=== PATIENT | female | born 1980 | race Two or more races ===

== ENCOUNTER 2024-04-18 00:35 | Inpatient (IN) | payer BC ==
[~2024-04-18] VITALS: Ht 167.6 cm; Wt 91.8 kg
[2024-04-18 01:09] VITALS: BP 151/94; PULSE 71; RESP 18; TEMP 98.2; O2SAT 97
--- NOTE | 2024-04-18 02:36 | DVHHPRES ---
History of Present Illness Resident Creating Document: FRACISCO JAMES RESIDENT History of Present Illness This is a 43 years old female with no significant past medical history presented to the [facility] earlier today with complaints of chest pressure , elevated blood pressure and numbness on the left side of the face. Code stroke was called there and patient was evaluated for possibility of acute stroke. On neurological examination they didn't find any sign of acute stroke. On CBC hemoglobin was 13.2 and hematocrit 40.3 and BNP demonstrated sodium 141, potassium 3.6, serum creatinine 0.88 and BUN 12. EKG and troponins were unremarkable. Coagulation studies revealed PT 10, PTT 32.[address] angio chest with contrast revealed normal study and no filling defect in the pulmonary arteries. CT Head without contrast revealed normal study and CTA head and neck revealed no acute finding in the arteries of the head and neck. The patient is transferred to the [facility] for the insurance issue. The patient is admitted for further evaluation to exclude the possibility of acute stroke. Past Medical History None Past Surgical History None Family History None Past Social History Lives with Family Nonsmoker, nonalcoholic and never tried any drugs. Review of Systems Constitutional: No: Fever, Chills, Sweats, Weakness, Malaise, Other Eyes: No: Pain, Vision change, Conjunctivae inflammation, Eyelid inflammation, Other, Redness ENT: No: Ear pain, Ear discharge, Nose pain, Nose discharge, Nose congestion, Mouth pain, Mouth swelling, Throat pain, Throat swelling, Other Respiratory: No: Cough, Dry, Shortness of breath, SOB with excertion, Wheezing, Hemoptysis, Pleuritic Pain, Sputum, Wheezing, Other Cardiovascular: No: Chest Pain, Palpitations, Orthopnea, Paroxysmal Noc. Dyspnea, Edema, Lt Headedness, Other Gastrointestinal: No: Nausea, Vomiting, Abdominal Pain, Diarrhea, Constipation, Melena, Hematochezia, Other Genitourinary: No Dysuria, No Frequency, No Incontinence, No Hematuria, No Retention, No Other Musculoskeletal: No: other, neck pain, shoulder pain, arm pain, back pain, hand pain, leg pain, foot pain Skin: No: Rash, Lesions, Jaundice, Bruising, Other Neurological: No: Weakness, Numbness, Incoordination, Change in speech, Confusion, Seizures, Other Allergies: Coded Allergies: NO KNOWN ALLERGIES (Unverified , 08/26/13) Exam Vital Signs Vital Signs Date Time Temp Pulse Resp B/P (MAP) Pulse Ox O2 Delivery O2 Flow Rate FiO2 04/18/24 01:09 98.2 71 18 151/94 (113) 97 98.2 04/18/24 01:09 Room Air* 0 21 Exam Physical examination: General Appearance: Alert, Oriented X3, Cooperative, No acute distress HEENT: Atraumatic, PERRLA, EOMI, Mucous membrane moist/pink Respiratory: Clear to auscultation, Normal air movement Cardiovascular: Regular rate, Normal S1, Normal S2, No murmurs, no chest wall tenderness Abdominal: Normal bowel sounds, Soft, No tenderness, No hepatospenomegaly, No masses Extremities: No clubbing, No cyanosis, No edema, Normal pulses, No tenderness/swelling Skin: No rashes, No breakdown, No significant lesion Neuro: Normal gait, Normal speech, Strength at 5/5 X4 ext, Normal tone, Sensation intact, Cranial nerves 3-12 NL, Reflexes 2+ Psych/Mental Status: Mental status NL, Mood NL Assessment/Plan Assessment/Plan Assessment and plan: # Transient ischemic attack, rule out acute stroke - Patient was evaluated in [facility] for acute stroke - CT head without contrast revealed normal study - CTA head and neck demonstrated no acute finding in the arteries of the head and neck - CT angio chest with contrast showed normal study and no filling defects in the pulmonary arteries - EKG and troponins were unremarkable - CBC, CMP and coagulation studies were normal - Ordered MRI of the head without contrast, TSH, B12, echo, lipid profile, hemoglobin A1c - Aspirin 81 mg p.o. daily and atorvastatin 40 mg at HS # Essential hypertension - Permissive hypertension is recommended for next 24-48 hours - Monitoring of the blood pressure closely # Prediabetic, hemoglobin A1c 5.8 - counseled patient regarding low carb diet, lifestyle modification and physical exercise # Hyperlipidemia - Atorvastatin 40 mg at HS # Hypokalemia - Replenished # PUD prophylaxis - Pepcid 20 mg po daily # DVT prophylaxis - Not recommended as patient is mobile. Goal of care discussed with the patient for more than 17 minutes full code Plan discussed with Dr. Escalante Plan discussed with: Patient, Other My Orders Orders - FRACISCO JAMES RESIDENT Procedure Category Date Status Time Brain Head Wo Contrast MRI 12/27/24 Transmitted 02:30 Thyroid Stimulating LAB 04/18/24 Transmitted Hormone 02:30 Vitamin B12 LAB 04/18/24 Transmitted 02:30 Hemoglobin A1c LAB 04/18/24 Transmitted 02:30 Complete Blood Count LAB 04/18/24 Transmitted 02:30 Basic Metabolic Panel LAB 04/18/24 Transmitted 02:30 Echo 2d Mode Cardiac US 04/18/24 Transmitted DOP 02:30 Electrocardigram EKG 04/18/24 Transmitted 02:30 Aspirin Enteric PHA 04/18/24 Transmitted Coated Tablet 10:00 Atorvastatin (Lipitor) PHA 04/18/24 Transmitted 22:00 Date of Service: Apr 18, 2024 Billing Provider: ALLIE ESCALANTE MD Common Visit Codes: [id number] INP/OBS CARE (HIGH) FRACISCO JAMES RESIDENT Apr 18, 2024 02:36 ALLIE ESCALANTE MD Apr 18, 2024 09:02
[2024-04-18 03:02] VITALS: PULSE 74
[2024-04-18 04:09] LABS: Anion Gap 7 (5-15); Carbon Dioxide 28 mmol/L (20-31); Chloride 105 mmol/L (98-107); Sodium 140 mmol/L (136-145)
[2024-04-18 04:10] LABS: Calcium 9.5 mg/dL (8.7-10.4)
[2024-04-18 04:15] LABS: Triglycerides 132 mg/dL (< 150)
[2024-04-18 04:16] LABS: Glucose 103 mg/dL (74-106)
[2024-04-18 04:19] LABS: Basophils # (auto) 0 10 ^3/uL (0-0.2); Basophils % (auto) 0.5 % (0.0-2.0); Eosinophils # (auto) 0.1 10 ^3/uL (0-0.8); Eosinophils % (auto) 1.2 % (0.0-7.0); Hematocrit 37.6 % (36.0-46.0); Hemoglobin 12.7 g/dL (12.2-16.2); Lymphocytes # (auto) 2.7 10 ^3/uL (0.4-5.4); Lymphocytes % (auto) 43.9 % (10.0-50.0); Mean Corpuscular Hemoglobin 31.4 pg (28.0-32.0); Mean Corpuscular Hgb Conc. 33.9 g/dL (32.0-36.0); Mean Corpuscular Volume 92.7 fL (80.0-100.0); Monocytes # (auto) 0.4 10 ^3/uL (0-1.3); Monocytes % (auto) 6.4 % (0.0-12.0); Neutrophils # (auto) 2.9 10 ^3/uL (1.6-8.6); Platelet Count (auto) 204 10^3/uL (140-450); Red Blood Cells 4.06 10^6/uL (4.0-5.20); Red Cell Distribution Width 13.3 % (11.8-14.3); White Blood Cell 6.1 10^3/uL (4.4-10.8)
[2024-04-18 04:34] LABS: Blood Urea Nitrogen 8 mg/dL (9-23); Cholesterol 227 mg/dL (< 200); HDL Cholesterol 77 mg/dL (40-59); LDL Cholesterol 139 mg/dL (< 100); Potassium 3.4 mmol/L (3.5-5.1)
[2024-04-18 05:00] VITALS: BP 120/79; PULSE 65; RESP 16; TEMP 97.7; O2SAT 97
[2024-04-18 08:30] VITALS: PULSE 67
[2024-04-18 09:00] VITALS: BP 96/62; PULSE 69; RESP 16; TEMP 98; O2SAT 96
[2024-04-18] MEDS: ASPirin-EC 81 mg tab PO SCH (09:40)
[2024-04-18] MEDS: FAMOTIDINE 20 MG TAB PO SCH (09:40)
[2024-04-18] MEDS: CLOPIDOGREL BISULFATE 75 MG TAB PO SCH (09:41)
--- NOTE | 2024-04-18 10:21 | DVH ---
MRI BRAIN WITHOUT CONTRAST CLINICAL HISTORY: Transient ischemic attack TECHNIQUE: Multiplanar, multisequence MR images of the brain without intravenous contrast. Comparison: None FINDINGS: There is no restricted diffusion. The mora and white matter signal is appropriate. There is no eviden ce of hemorrhage, mass, mass effect or midline shift. There is no hydrocephalus or extra-axial fluid collection. The visualized intracranial vasculature demonstrates appropriate flow-voids. The sagittal midline structures appear unremarkable. The craniocervical junction is within normal limits. The tatum varium demonstrates normal marrow signal. The paranasal sinuses and mastoid air cells are clear. IMPRESSION: 1. Unremarkable noncontrast MRI brain. HS:Y
--- NOTE | 2024-04-18 12:46 | DVHPN2 ---
Reviewed: Care Plan, H&P, Labs, Medications, Previous Orders, Radiology Changes from previous H/P or p: No Changes Eyes: No Pain, No Vision change, No Conjunctivae inflammation, No Eyelid inflammation, No Other, No Redness ENT: No Ear pain, No Ear discharge, No Nose pain, No Nose discharge, No Nose congestion, No Mouth pain, No Mouth swelling, No Throat pain, No Throat swelling, No Other Cardiovascular: No Chest Pain, No Palpitations, No Orthopnea, No Paroxysmal Noc. Dyspnea, No Edema, No Lt Headedness, No Other Respiratory: No Cough, No Dry, No Shortness of breath, No SOB with excertion, No Wheezing, No Hemoptysis, No Pleuritic Pain, No Sputum, No Other Gastrointestinal: No Nausea, No Vomiting, No Abdominal Pain, No Diarrhea, No Constipation, No Melena, No Hematochezia, No Other Genitourinary: No Dysuria, No Frequency, No Incontinence, No Hematuria, No Retention, No Other Musculoskeletal: No other, No neck pain, No shoulder pain, No arm pain, No back pain, No hand pain, No leg pain, No foot pain Skin: No Rash, No Lesions, No Jaundice, No Bruising, No Other Objective Vitals Vital Signs Date Time Temp Pulse Resp B/P (MAP) Pulse Ox O2 Delivery O2 Flow Rate FiO2 04/18/24 09:00 98.0 69 16 96/62 (73) 96 98.0 04/18/24 01:09 Room Air* 0 21 Intake/Output Intake and Output 04/18/24 07:00 Intake Total 0 ml Balance 0 ml Intake Oral 0 ml Medications Current Medications Medications Dose Ordered Sig/Hipolito Route Start Time Stop Time Status Last Admin Dose Admin Aspirin 81 mg DAILY PO 04/18/24 10:00 04/18/24 09:40 81 MG Atorvastatin Calcium 40 mg HS PO 04/18/24 22:00 Famotidine 20 mg DAILY PO 04/18/24 10:00 04/18/24 09:40 20 MG Clopidogrel Bisulfate 75 mg DAILY PO 04/18/24 10:00 04/18/24 09:41 75 MG Laboratory Results Laboratory Tests 04/18/24 03:20 Chemistry Test 04/18/24 03:20 Calcium Level 9.5 mg/dL (8.7-10.4) Lipid panel Test 04/18/24 03:20 Cholesterol Level 227 mg/dL (< 200) H HDL Cholesterol 77 mg/dL (40-59) H Triglycerides Level 132 mg/dL (< 150) HgA1c, TSH Test 04/18/24 03:20 Hemoglobin A1c 5.8 % A1C (<5.7) H Thyroid Stimulating Hormone (TSH) 3.25 uIU/mL (0.55-4.78) Labs and/or images reviewed: Labs reviewed by me, Image(s) reviewed by me Assessment/Plan Assessment/Plan Transferred from [facility] TIA, rule out stroke: CTA head CT head and neck, CT chest angio unremarkable Hypertension Hypercholesterolemia cholesterol 226: Lipitor Hypokalemia: Replace potassium Patient is thinking of signing out AMA Plan discussed with: Patient Date of Service: Apr 18, 2024 Billing Provider: HELEN GARCIA MD Common Visit Codes: [id number] INP/OBS CARE(HIGH) HELEN GARCIA MD Apr 18, 2024 12:46
[2024-04-18 13:00] VITALS: BP 150/90; PULSE 67; RESP 18; TEMP 97.9; O2SAT 98
--- NOTE | 2024-04-18 13:52 | DVHSR ---
APPROVED REPORT EXAM: Two-dimensional and M-mode echocardiogram with Doppler and color Doppler. Blood Pressure: 120/79 mmHg INDICATION CVA/TIA: RISK FACTORS Height: 5'6", Weight: 202 DIMENSIONS LVDd5.0 (3.8-5.7cm)LA (2D)3.2 (1.9-4.0cm)Aortic Root2.7 (2.0-3.7cm) LVDs3.6 (2.5-4.0cm)LA (MM) (1.9-4.0cm)Aortic Cusp Exc1.5 (1.5-2.0cm) EF (%) 54.0 (55-70%)Rt. Atrium2.8 (1.9-4.0cm)Asc. Aorta2.9 cm IVSd1.0 (0.7-1.1cm)RV (D) (1.8-2.4cm) PWd0.8 (0.7-1.1cm) Mitral Valve MitralMitral Stenosis E wave0.62m/sMV Mean GR.mmHg A wave0.70m/sMV Peak GR.mmHg E/A ratio0.92D MVAcm2 DECEL [id number] 1/2 Timems Aortic Valve Aortic ValveAortic Stenosis V10.84m/Viviana Mean GR.3mmHg V21.19m/Viviana Peak GR.6mmHg LVOT Diameter2.0 (1.8-2.4cm)Doppler AVA2.22cm2 Pulmonic Valve V20.83m/s LEFT VENTRICLE Normal size. Normal wall thickness. Normal systolic function with ejection fraction of 55%. No wall motion abnormalities. RIGHT VENTRICLE Normal size. Normal systolic function. ATRIA Both atria are of normal size. The intra-atrial septum is not well visualized. MITRAL VALVE Normal structure and function. There is trace mitral regurgitation. PULMONIC VALVE Normal. TRICUSPID VALVE Normal. There is trace regurgitation. Inadequate to estimate PA pressure. AORTIC VALVE Normal trileaflet structure. Normal function. GREAT VESSELS Normal. PERICARDIAL EFFUSION No significant effusion. Other Information Quality : Technically LimitedRhythm : Technically limited study due to patient position. Conclusion Normal biventricular size and systolic function. No significant left ventricular hypertrophy. No evidence of diastolic dysfunction. No significant valvular disease. The intra-arterial septum is not well visualized.
[2024-04-18] MEDS ORDERED: ATORVASTATIN 20 MG TAB PO SCH (22:00)
--- NOTE | 2024-04-19 07:56 | DVHDS2 ---
Discharge Summary Date of Admission Apr 18, 2024 at 00:53 Date of Discharge: Apr 18, 2024 Admitting Diagnosis Stroke-like symptoms Wounds: None Labs/Diagnostic Data: Laboratory Results Test 04/18/24 03:20 White Blood Count 6.1 10^3/uL (4.4-10.8) Red Blood Count 4.06 10^6/uL (4.0-5.20) Hemoglobin 12.7 g/dL (12.2-16.2) Hematocrit 37.6 % (36.0-46.0) Mean Corpuscular Volume 92.7 fL (80.0-100.0) Mean Corpuscular Hemoglobin 31.4 pg (28.0-32.0) Mean Corpuscular Hemoglobin Concent 33.9 g/dL (32.0-36.0) Red Cell Distribution Width 13.3 % (11.8-14.3) Platelet Count 204 10^3/uL (140-450) Mean Platelet Volume 9.5 fL (6.9-10.8) Neutrophils (%) (Auto) 48.0 % (37.0-80.0) Lymphocytes (%) (Auto) 43.9 % (10.0-50.0) Monocytes (%) (Auto) 6.4 % (0.0-12.0) Eosinophils (%) (Auto) 1.2 % (0.0-7.0) Basophils (%) (Auto) 0.5 % (0.0-2.0) Neutrophils # (Auto) 2.9 10 ^3/uL (1.6-8.6) Lymphocytes # (Auto) 2.7 10 ^3/uL (0.4-5.4) Monocytes # (Auto) 0.4 10 ^3/uL (0-1.3) Eosinophils # (Auto) 0.1 10 ^3/uL (0-0.8) Basophils # (Auto) 0 10 ^3/uL (0-0.2) Nucleated Red Blood Cells 0.0 % Sodium Level 140 mmol/L (136-145) Potassium Level 3.4 mmol/L (3.5-5.1) Chloride Level 105 mmol/L (98-107) Carbon Dioxide Level 28 mmol/L (20-31) Anion Gap 7 (5-15) Blood Urea Nitrogen 8 mg/dL (9-23) Creatinine 0.73 mg/dL (0.550-1.02) Glomerular Filtration Rate Calc 105 mL/min (>90) BUN/Creatinine Ratio 11.0 (10.0-20.0) Serum Glucose 103 mg/dL (74-106) Hemoglobin A1c 5.8 % A1C (<5.7) Calcium Level 9.5 mg/dL (8.7-10.4) Triglycerides Level 132 mg/dL (< 150) Cholesterol Level 227 mg/dL (< 200) LDL Cholesterol 139 mg/dL (< 100) HDL Cholesterol 77 mg/dL (40-59) Vitamin B12 Level 942 pg/mL (211-911) Thyroid Stimulating Hormone (TSH) 3.25 uIU/mL (0.55-4.78) Other Laboratory Tests 04/18/24 03:20 Brief Hx & Hospital Course: Patient with a no previous medical history transferred from [facility] where she went for possible stroke-like symptoms. CT head was negative CT chest angiogram was negative CTA head and neck was negative patient has a history of hypertension hypercholesterolemia for which he is on Lipitor hypokalemia resolved with a potassium at the time of examination patient did not have any signs and symptoms of stroke. Possible TIA with a diagnosis. While awaiting further stabilization patient decided to leave AMA and left AMA consequences and complications explained to the patient and she verbalized understanding Consults/Reason for consult None Operations or Procedures CT head Condition at Discharge: Fair Final Diagnosis/Problems List Transferred from [facility] TIA, rule out stroke: CTA head CT head and neck, CT chest angio unremarkable Hypertension Hypercholesterolemia cholesterol 226: Lipitor Hypokalemia: Replace potassium Discharge Disposition: AMA Discharge Instruct/Medications Diet comment: NOT APPLICABLE PATIENT LEFT AMA Activity comment: NOT APPLICABLE PATIENT LEFT AMA Follow Up/Referral: NOT APPLICABLE PATIENT LEFT AMA Medications: NOT APPLICABLE PATIENT LEFT AMA 35 (TIME TAKEN FOR DISCHARGE SUMMARY 35 MINUTES) Discharge Statement: "Patient was advised to return to the ER or call 911 if any headaches, dizziness, shortness of breath, chest pain, abdominal pain, bleeding, fevers, or worsening of medical condition. Patient was counseled about treatment plan, medications, possible side effects, patientverbalized understanding. All questions were answered to the best of my ability. This discharge took greater then 30 minutes in planning, reviewing documentation, counseling the patient, and discussing with other team members." ASSESSMENT ASSESSMENT Hospital Course Left AMA Assessment Date of Service: Apr 19, 2024 Billing Provider: HELEN GARCIA MD Common Visit Codes: [id number] INP/OBS CARE(HIGH) HELEN GARCIA MD Apr 19, 2024 07:56
== END 2024-04-18 13:41 | disposition left against medical advice (07) | DRG 69 ==
LOC: TELE-CENTR 00:53
PROVIDERS: ADMIT Internal Medicine; ATTEND Family Medicine
DX: G45.9 Transient cerebral ischemic attack, unspecified (principal); E87.6 Hypokalemia; I10 Essential (primary) hypertension; R73.03 Prediabetes; E78.00 Pure hypercholesterolemia, unspecified; Z53.29 Procedure and treatment not carried out because of patient's decision for other reasons
CPT/HCPCS: 36415; 70551; 80048; 80061; 82607; 83036; 84443; 85025; 93306; G0378

== ENCOUNTER 2025-03-09 07:38 | Outpatient (CLI) | payer BC ==
[2025-03-09 08:16] LABS: Hematocrit 38.4 % (36.0-46.0); Hemoglobin 12.8 g/dL (12.2-16.2); Mean Corpuscular Hemoglobin 31.0 pg (28.0-32.0); Mean Corpuscular Volume 92.8 fL (80.0-100.0); Nucleated Red Blood Cells % 0.1 %
[2025-03-09 09:10] LABS: Alanine Aminotransferase 21 U/L (7-40); Albumin 4.4 g/dL (3.2-4.8); Alkaline Phosphatase 61 U/L (46-116); Anion Gap 10 (5-15); BUN/Creatinine Ratio 29.4 (10.0-20.0); Bilirubin, Total 0.4 mg/dL (0.2-1.0); Blood Urea Nitrogen 20 mg/dL (9-23); Calcium 9.2 mg/dL (8.7-10.4); Carbon Dioxide 26 mmol/L (20-31); Chloride 106 mmol/L (98-107); Cholesterol 202 mg/dL (< 200); Glucose 95 mg/dL (74-106); HDL Cholesterol 65 mg/dL (40-59); Potassium 4.4 mmol/L (3.5-5.1); Sodium 142 mmol/L (136-145); Total Protein 7.1 g/dL (5.7-8.2); Triglycerides 136 mg/dL (< 150)
[2025-03-09 09:45] LABS: Uric Acid 4.1 mg/dL (3.1-7.8)
[2025-03-09 11:10] LABS: Free T3 3.0 pg/mL (2.3-4.2)
== END 2025-03-09 17:00 | disposition home or self-care (01) ==
LOC: LAB 07:38
PROVIDERS: ATTEND Internal Medicine
DX: E11.9 Type 2 diabetes mellitus without complications (principal); E78.49 Other hyperlipidemia; E61.2 Magnesium deficiency; E55.9 Vitamin D deficiency, unspecified; E79.0 Hyperuricemia without signs of inflammatory arthritis and tophaceous disease; D51.9 Vitamin B12 deficiency anemia, unspecified; R82.79 Other abnormal findings on microbiological examination of urine; R82.90 Unspecified abnormal findings in urine; R82.998 Other abnormal findings in urine; R94.6 Abnormal results of thyroid function studies; R68.89 Other general symptoms and signs
CPT/HCPCS: 36415; 80053; 80061; 82306; 82607; 82746; 83036; 83970; 84443; 84481; 84550; 85025

== ENCOUNTER 2025-03-23 17:51 | Emergency (ER) | payer BC ==
[~2025-03-23] VITALS: Ht 167.6 cm; Wt 89.5 kg
[2025-03-23 18:54] LABS: Hematocrit 39.5 % (36.0-46.0); Hemoglobin 13.2 g/dL (12.2-16.2); Mean Corpuscular Hemoglobin 31.1 pg (28.0-32.0); Mean Corpuscular Volume 93.1 fL (80.0-100.0); Nucleated Red Blood Cells % 0.1 %
[2025-03-23 19:00] LABS: Chloride 103 mmol/L (98-107); Sodium 141 mmol/L (136-145)
[2025-03-23 19:01] LABS: Anion Gap 10 (5-15); Carbon Dioxide 28 mmol/L (20-31)
[2025-03-23 19:02] LABS: Calcium 10.1 mg/dL (8.7-10.4)
[2025-03-23 19:06] LABS: BUN/Creatinine Ratio 13.6 (10.0-20.0); Blood Urea Nitrogen 11 mg/dL (9-23); Glucose 103 mg/dL (74-106)
[2025-03-23 19:07] LABS: Potassium 3.4 mmol/L (3.5-5.1)
--- NOTE | 2025-03-23 19:18 | ED.PDOC ---
History of Present Illness HPI Comments 44-year-old, obese female is brought in by ambulance from [facility] ([facility]) as a transfer admission for IV antibiotics following abnormal lab findings. Per EMS personnel report, patient is a transfer admission after initial blood culture she had done during an encounter for flank pain, yesterday, at [facility] showed Gram-positive bacteria infection. Patient, additionally, had been started on Macrobid before being discharged Chief Complaint: Abnormal LAB's Time Seen by MD: 18:15 Primary Care Provider: Tor Allergies: Coded Allergies: NO KNOWN ALLERGIES (Unverified , 08/26/13) Mode of Arrival: EMS Past Medical History PAST MEDICAL HISTORY: Anxiety, Depression Surgical History: Thyroidectomy SENIOR LITIGATION PARALEGAL History: No Pertinent SENIOR LITIGATION PARALEGAL History Constitutional: denies: chills, diaphoresis, fatigue, fever, malaise, sweats, weakness, others EENTM: denies: blurred vision, double vision, ear bleeding, ear discharge, ear drainage, ear pain, ear ringing, eye pain, eye redness, hearing loss, mouth pain, mouth swelling, nasal discharge, nose bleeding, nose congestion, nose pa in, photophobia, tearing, throat pain, throat swelling, voice changes, others Respiratory: denies: cough, hemoptysis, orthopnea, SOB at rest, shortness of breath, SOB with excertion, stridor, wheezing, others Cardiovascular: denies: chest pain, dizzy spells, diaphoresis, Dyspnea on exertion, edema, irregular heart beat, left arm pain, lightheadedness, palpitations, PND, syncope, others Gastrointestinal: denies: abdomen distended, abdominal pain, blood streaked bowels, constipated, diarrhea, dysphagia, difficulty swallowing, hematemesis, melena, nausea, poor appetite, poor fluid intake, rectal bleeding, rectal pain, vomiting, others Genitourinary: denies: abnormal vagina bleeding, burning, dyspareunia, dysuria, flank pain, frequency, hematuria, incontinence, pain, , vagina discharge, urgency, others Neurological: denies: dizziness, fainting, headache, left sided numbness, left sided weakness, numbness, paresthesia, pre-existing deficit, right sided numbness, right sided weakness, seizure, speech problems, tingling, tremors, weakness, others Musculoskeletal: denies: back pain, gout, joint pain, joint swelling, muscle pain, muscle stiffness, neck pain, others Integumetry: denies: bruises, change in color, change in hair/nails, dryness, laceration, lesions, lumps, rash, wounds, others Allergic/Immunocompromised: denies: Difficulty Healing, Frequent Infections, Hives, Itching, others Hematologic/Lymphatic: denies: anemia, blood clots, easy bleeding, easy bruising, swollen glands, others Endocrine: denies: excessive hunger, excessive sweating, excessive thirst, excessive urination, flushing, intolerance to cold, intolerance to heat, unexplained weight gain, unexplained weight loss, others Psychiatric: denies: anxiety, bipolar disorder, depression, hopeless, panic disorder, schizophrenia, sleepless, suicidal, others Physical Exam General Appearance: No Apparent Distress, Normal HEENT: Normal ENT Inspection, Pharynx Normal, TMs Normal Neck: Full Range of Motion, Non-Tender, Normal, Normal Inspection Respiratory: Chest Non-Tender, Lungs Clear, No Accessory Muscle Use, No Respiratory Distress, Normal Breath Sounds Cardiovascular: No Edema, No JVD, No Murmur, No Gallop, Normal Peripheral Pulses, Regular Rate/Rhythm Breast Exam: Deferred Gastrointestinal: No Organomegaly, Non Tender, No Pulsatile Mass, Normal Bowel Sounds, Soft Genitalia: Deferred Pelvic: Deferred Rectal: Deferred Extremities: No calf tenderness, Normal capillary refill, Normal inspection, Normal range of motion, Non-tender, No pedal edema Musculoskeletal : Apperance: Normal Neurologic: Alert, dag coater II-XII nml as Tested, No Motor Deficits, Normal Affect, Normal Mood, No Sensory Deficits Cerebellar Function: Normal Reflexes: Normal Skin: Dry, Normal Color, Warm Lymphatic: No Adenopathy Was a procedure done? Was a procedure done?: No Differential Dx Considerations may include: Pyelonephritis, UTI, urosepsis X-Ray, Labs, Meds, VS Vital Signs Date Time Temp Pulse Resp B/P (MAP) Pulse Ox O2 Delivery O2 Flow Rate FiO2 03/23/25 17:59 98.6 83 18 140/92 98 98.6 Lab Test 03/23/25 18:32 Range/Units White Blood Count 7.9 4.4-10.8 10^3/uL Red Blood Count 4.24 4.0-5.20 10^6/uL Hemoglobin 13.2 12.2-16.2 g/dL Hematocrit 39.5 36.0-46.0 % Mean Corpuscular Volume 93.1 80.0-100.0 fL Mean Corpuscular Hemoglobin 31.1 28.0-32.0 pg Mean Corpuscular Hemoglobin Concent 33.4 32.0-36.0 g/dL Red Cell Distribution Width 13.8 11.8-14.3 % Platelet Count 239 140-450 10^3/uL Mean Platelet Volume 8.8 6.9-10.8 fL Neutrophils (%) (Auto) 60.4 37.0-80.0 % Lymphocytes (%) (Auto) 34.9 10.0-50.0 % Monocytes (%) (Auto) 3.8 0.0-12.0 % Eosinophils (%) (Auto) 0.6 0.0-7.0 % Basophils (%) (Auto) 0.3 0.0-2.0 % Neutrophils # (Auto) 4.8 1.6-8.6 10 ^3/uL Lymphocytes # (Auto) 2.7 0.4-5.4 10 ^3/uL Monocytes # (Auto) 0.3 0-1.3 10 ^3/uL Eosinophils # (Auto) 0 0-0.8 10 ^3/uL Basophils # (Auto) 0 0-0.2 10 ^3/uL Nucleated Red Blood Cells 0.1 % Sodium Level 141 136-145 mmol/L Potassium Level 3.4 L 3.5-5.1 mmol/L Chloride Level 103 98-107 mmol/L Carbon Dioxide Level 28 20-31 mmol/L Anion Gap 10 5-15 Blood Urea Nitrogen 11 9-23 mg/dL Creatinine 0.81 0.550-1.02 mg/dL Glomerular Filtration Rate Calc 92 >90 mL/min BUN/Creatinine Ratio 13.6 10.0-20.0 Serum Glucose 103 74-106 mg/dL Lactic Acid Level 0.8 0.4-2.0 mmol/L Calcium Level 10.1 8.7-10.4 mg/dL X-Ray, Labs, Meds, VS Comment Patient hemodynamically stable Patient adamant that she does not want to stay/be admitted Patient be given one dose of vancomycin and sent home with clindamycin Blood cultures will be redrawn and verified Patient advised if symptoms change or get any worse she has follow up in the emergency department as soon as possible Time of 1ST Reevaluation: 19:45 Reevaluation 1ST: Unchanged Patient Education/Counseling: Diagnosis, Treatment, Need For Follow Up (Follow up with PCP next available appointment.) Family Education/Counseling: Diagnosis SEPSIS Sepsis Screen Date sepsis recognized/suspect: Mar 23, 2025 Time Sepsis recognized/suspect: 1758 Recent Procedure: No On Antibiotic Therapy: No Respiratory Rate >20: No Heart Rate >90: No Temp<36 C (96.8 F) or >38.3 C: No SBP <90 or MAP <65 mmHG: No New Acute Mental Status Change: No Is the patient on CPAP, BIPAP,: No Physician Orders Urinalysis (03/23/25 18:14) Blood Culture (03/23/25 18:14) Vital Signs Date Time Temp Pulse Resp B/P (MAP) Pulse Ox O2 Delivery O2 Flow Rate FiO2 03/23/25 17:59 98.6 83 18 140/92 98 98.6 Laboratory Tests Test 03/23/25 18:32 Lactic Acid Level 0.8 mmol/L (0.4-2.0) White Blood Count 7.9 10^3/uL (4.4-10.8) Departure 1 Departure Time of Disposition: 19:44 Impression: Primary Impression: Urinary tract infection Qualified Codes: N30.00 - Acute cystitis without hematuria Disposition: HOME / SELF CARE / HOMELESS Condition: Stable e-Prescriptions Clindamycin Hcl (Clindamycin Hcl) 300 Mg Cap 1 CAP PO TID for 10 Days, #30 CAP Prov: ABA CARRANZA 03/23/25 Discharged With: Self Critical Care Note Critical Care Time?: No Stability Stability form required: No Heart Score Heart Score: Heart Score Response (Comments) Value History N/A 0 EKG N/A 0 Age N/A 0 Risk Factors N/A 0 Troponin N/A 0 Total 0 I personally scribed for ABA CARRANZA ([email or web address]) on 03/23/25 at 19:18. Electronically submitted by Faustino Johnson ([email or web address]). I personally scribed for ABA CARRANZA ([email or web address]) on 03/23/25 at 19:27. Electronically submitted by Faustino Johnson ([email or web address]). ABA CARRANZA [facility] Mar 23, 2025 19:18
[2025-03-23] MEDS ORDERED: CLIN1CAP70 PO (19:44)
[2025-03-23] MEDS: VANCOMYCIN 1GM/250ML KIT 250 ML IV ONE (20:03)
[2025-03-23 20:21] VITALS: BP 107/64; PULSE 84; RESP 15; TEMP 97.8; O2SAT 97
== END 2025-03-23 20:57 | disposition home or self-care (01) ==
LOC: ER 17:51 → EDUNIT# 17:51 → EDBD 17:51 → ER 20:57
DX: N39.0 Urinary tract infection, site not specified (principal); F41.9 Anxiety disorder, unspecified; F32.A Depression, unspecified; E66.9 Obesity, unspecified; Z90.89 Acquired absence of other organs; Z68.31 Body mass index [BMI] 31.0-31.9, adult
CPT/HCPCS: 36415; 80048; 83605; 85025; 87040; 96365; 99284; J3373